=== PATIENT | male | born 1955 | race Caucasian/White ===

== ENCOUNTER 2017-11-09 15:23 | Emergency (ER) | payer BC, SELFPAY ==
[2017-11-09] VITALS (14 sets, daily range): BP systolic 131–149; BP diastolic 66–77; PULSE 70–82; RESP 16; TEMP 36.6; O2SAT 97–100
--- NOTE | 2017-11-09 15:30 | DI.RAD_ITS ---
SYMPTOMS/DIAGNOSIS: DEVIATION OF THE ANKLE AND FOOT TO THE RIGHT, ANKLE DEFORMITY, S/P INJURY PAIN IN DISTAL TIB-FIB, CONCERN FOR FX RIGHT ANKLE: There is a fracture extending obliquely through the distal fibula. There is displacement of the half shaft width laterally of the distal fractured portion. There is marked widening of the medial malleolus. An additional fracture is seen involving the posterior malleolus. Hardware is noted in the calcaneus from Achilles tendon repair. IMPRESSION: Fractures of the lateral and posterior malleoli with marked widening of the medial ankle mortise. RIGHT TIBIA-FIBULA: Fracture of the distal fibula and posterior tibia and marked medial ankle mortise widening are again noted. No additional fractures are seen proximally in the tibia and fibula. IMPRESSION: Lateral and posterior malleolar fractures and marked medial ankle mortise widening.
[2017-11-09] MEDS: Acetaminophen 500 MG TAB 1000 MG PO (15:39)
[2017-11-09] MEDS: Ibuprofen 800 MG TAB PO (15:40)
--- NOTE | 2017-11-09 15:45 | ED.GENADUL ---
Disposition Clinical Impression: Fracture of distal fibula, Fracture of posterior malleolus of right tibia Disposition: HOME Condition: Good Instructions: Ankle Fracture (ED) Additional Instructions: Please take Tylenol and Motrin for your pain. Due to the small chance of decreased tendon and bone healing I would recommend Tylenol over ibuprofen if you would gravitate towards one or the other. Please take an 81 mg daily aspirin. If you notice any changing of color on your foot, blueness, worsening pain, numbness or tingling, or coolness in your foot please remove the cast immediately and come to the nearest ER. Please follow-up as soon as possible with the card services specialist. Please call the office of Dr. Brody and Dr. Miller in [facility] at the phone number [phone]. Please ask for Rene Troncoso and tell him that you had a distal fibular and tibial malleolus fracture. Tell him that the ER doctor spoke with Dr. Brody and Dr. Brody wanted you seen as soon as possible. If you notice any worsening of your symptoms, or any new symptoms such as vomiting, diarrhea, fever, chills, shortness of breath, chest pain, numbness, weakness, or fainting , please return immediately to the emergency department for reevaluation. Please follow up with your primary care provider as soon as possible for reassessment and reevaluation. As always, it was a pleasure participating in your medical care today. Prescriptions: Acetaminophen [Tylenol Extra Strength] 1,000 mg PO Q6H 5 Days #60 tab Aspirin [Adult Aspirin] 81 mg PO DAILY #30 tablet. Ibuprofen [Motrin Ib] 600 mg PO Q6H 5 Days #60 tablet Medical Decision Making - Medical Decision Making This is a 61-year-old male no significant past medical history on no blood thinners who presents for ankle deformity. The patient was walking down the bank when he slipped and developed a violent deformity to his right ankle. He states that he was initially laterally and externally rotated, he was able to put it back in place, get back to his car. Physical exam demonstrates a foot that is midline with mild deformity at the ankle with no significant rotation at this point. Sensation is intact, vascular exam is normal with brisk capillary refill and +2 dorsalis pedis and +1 posterior tibial pulse. And concern for fracture. We will get an x-ray for further evaluation. At this point he is refusing any additional pain medication, but has agreed to Tylenol Motrin. 5:30 PM Patient's x-ray has returned and demonstrates evidence of fractures of the distal fibula in the posterior tibial malleolus with widening of the medial ankle joint space consistent with deltoid ligament rupture. These findings are noted on virtual radiology report. There is no evidence of proximal tibial or fibular fracture. I did contact Dr. Aggarwal and discussed the case with him. I reviewed the images and the findings, as well as the patient's current clinical position/disposition and he recommends outpatient follow-up for surgery with posterior splinting and nonweightbearing. The patient is from [place], and would prefer to follow-up there. I did contact the [facility], discussed the case with Dr. Brody, the foot and ankle specialist network operations specialist, he agrees with the current assessment and plan, and does recommend close follow-up at his clinic. It will be with himself or Dr. Miller. The phone number for the clinic that was given to me is [phone]. The patient was put in a posterior splint and he tolerated this well. Post splinting he continued to demonstrate a good neurovascular exam with brisk capillary refill and normal sensation. He has been given crutches. We discussed red flags for which to return the patient understands. I have also recommended a daily 81 mg aspirin and instructions for decreasing likelihood of a lower extremity clot. I have extensively reviewed the treatment plan and discharge instructions with the patient and their family. I have addressed all patient concerns at this time. The patient and family was made aware of what symptoms to monitor for that would warrant a return to the emergency department. Discussed the plan with the patient and family, they demonstrate verbal understanding and agreement with our assessment and plan at this time. History of Present Illness - General Chief complaint: Orthopedic Stated complaint: ANKLE INJURY Time Seen by Provider: 11/09/17 15:29 - History of Present Illness Initial comments: This is a 61-year-old male with past medical history of hearing difficulty and preglaucoma, who presents for right ankle pain. The patient states that he was walking and slipped in a ditch and he noticed that his right ankle was violently everted outwardly, and rotated to the right. He was able to reposition it on his own, hobbled back to his car, and came to the ER. The patient is a retired EMT. He complains of notable pain in the ankle, but no pain in the knee or tib-fib region. He denies any previous or recent surgeries. He denies any numbness, tingling. He does admit to weakness secondary to pain. He has no other complaints at this time. - Related Data Acetaminophen [Tylenol Extra Strength] 1,000 mg PO Q6H 5 Days #60 tab 11/09/17 Aspirin [Adult Aspirin] 81 mg PO DAILY #30 tablet.dr 11/09/17 Cholecalciferol (Vitamin D3) [Vitamin D] 1,000 unit PO DAILY 11/09/17 Fluticasone Propionate [Flonase] 2 spr NS DAILY PRN PRN 11/09/17 Ibuprofen [Motrin Ib] 600 mg PO Q6H 5 Days #60 tablet 11/09/17 Latanoprost [LATANOPROST 0.005%] 1 drp OP HS 11/09/17 [place]-3 Fatty Acids/Fish Oil [Fish Oil 1,000 mg Capsule] 1 each PO DAILY 11/09/17 Tamsulosin [Flomax] 0.4 mg PO HS 11/09/17 Allergies Allergy/AdvReac Type Severity Reaction Status Date / Time No Known Allergies Allergy Unverified 11/09/17 15:30 Review of Systems Other: 10 point review of systems was performed, pertinent positives and negatives are noted in the history of present illness. General Exam - Other Other exam information: 1.Const: Well-nourished, Well-developed, appearing stated age 2.Eyes: PERRL, no conjunctival injection, and symmetrical lids. 3.ENT: Atraumatic external nose and ears. Moist MM. Neck: Symmetric, trachea midline, No thyromegaly. 4.CVS: +S1/S2, No murmurs or gallops. Peripheral pulses 2+ and equal in all extremities. Brisk capillary refill in all extremities. 5.RESP: Unlabored respiratory effort. Clear to auscultation bilaterally. No wheezes rales or rhonchi 6.GI: Soft, Nontender/Nondistended, No hepatosplenomegaly. No guarding or rebound. 7.MSK: Normocephalic, No cyanosis or clubbing, noticeable deformity of the right ankle. Foot is currently midline however there does appear to be a slight shift laterally to the right for the entire ankle. Notable swelling. Pain is located over the medial and lateral malleoli. No pain or tenderness over the mid or proximal tib-fib. No pain in the knee, or signs of deformity or laxity in the knee. No pain over the lateral proximal fibula. No pain or tenderness over the midfoot, or toes. Good sensation throughout, including good two-point discrimination. Brisk capillary refill, intact +2 dorsalis pedis and +1 posterior tibial pulse. Normal sensation throughout. No other abnormalities. All other extremities normal. 8.Skin: Warm, Dry. No rashes or lesions. 9.Neuro: cardiology consultants II-XII grossly intact. Sensation grossly intact, no focal neurologic deficits. 10.Psych: (AAO) x3. Appropriate mood and affect Course Vital Signs - 24 hr 11/09/17 15:31 Temperature 36.6 C Pulse 73 Respiratory 16 Rate Blood Pressure 147/74 Pulse Oximetry 99
--- NOTE | 2017-11-09 15:50 | ED.GENADUL_ITS ---
Disposition Clinical Impression: Fracture of distal fibula, Fracture of posterior malleolus of right tibia Disposition: HOME Condition: Good Instructions: Ankle Fracture (ED) Additional Instructions: Please take Tylenol and Motrin for your pain. Due to the small chance of decreased tendon and bone healing I would recommend Tylenol over ibuprofen if you would gravitate towards one or the other. Please take an 81 mg daily aspirin. If you notice any changing of color on your foot, blueness, worsening pain, numbness or tingling, or coolness in your foot please remove the cast immediately and come to the nearest ER. Please follow-up as soon as possible with the bankruptcy law specialist. Please call the office of Dr. Brody and Dr. Miller in [facility] at the phone number [phone]. Please ask for Rene Troncoso and tell him that you had a distal fibular and tibial malleolus fracture. Tell him that the ER doctor spoke with Dr. Brody and Dr. Brody wanted you seen as soon as possible. If you notice any worsening of your symptoms, or any new symptoms such as vomiting, diarrhea, fever, chills, shortness of breath, chest pain, numbness, weakness, or fainting , please return immediately to the emergency department for reevaluation. Please follow up with your primary care provider as soon as possible for reassessment and reevaluation. As always, it was a pleasure participating in your medical care today. Prescriptions: Acetaminophen [Tylenol Extra Strength] 1,000 mg PO Q6H 5 Days #60 tab Aspirin [Adult Aspirin] 81 mg PO DAILY #30 tablet. Ibuprofen [Motrin Ib] 600 mg PO Q6H 5 Days #60 tablet Medical Decision Making - Medical Decision Making This is a 61-year-old male no significant past medical history on no blood thinners who presents for ankle deformity. The patient was walking down the bank when he slipped and developed a violent deformity to his right ankle. He states that he was initially laterally and externally rotated, he was able to put it back in place, get back to his car. Physical exam demonstrates a foot that is midline with mild deformity at the ankle with no significant rotation at this point. Sensation is intact, vascular exam is normal with brisk capillary refill and +2 dorsalis pedis and +1 posterior tibial pulse. And concern for fracture. We will get an x-ray for further evaluation. At this point he is refusing any additional pain medication, but has agreed to Tylenol Motrin. 5:30 PM Patient's x-ray has returned and demonstrates evidence of fractures of the distal fibula in the posterior tibial malleolus with widening of the medial ankle joint space consistent with deltoid ligament rupture. These findings are noted on virtual radiology report. There is no evidence of proximal tibial or fibular fracture. I did contact Dr. Aggarwal and discussed the case with him. I reviewed the images and the findings, as well as the patient's current clinical position/disposition and he recommends outpatient follow-up for surgery with posterior splinting and nonweightbearing. The patient is from [place], and would prefer to follow-up there. I did contact the [facility], discussed the case with Dr. Brody, the foot and ankle specialist senior compensation analyst, he agrees with the current assessment and plan, and does recommend close follow-up at his clinic. It will be with himself or Dr. Miller. The phone number for the clinic that was given to me is [phone]. The patient was put in a posterior splint and he tolerated this well. Post splinting he continued to demonstrate a good neurovascular exam with brisk capillary refill and normal sensation. He has been given crutches. We discussed red flags for which to return the patient understands. I have also recommended a daily 81 mg aspirin and instructions for decreasing likelihood of a lower extremity clot. I have extensively reviewed the treatment plan and discharge instructions with the patient and their family. I have addressed all patient concerns at this time. The patient and family was made aware of what symptoms to monitor for that would warrant a return to the emergency department. Discussed the plan with the patient and family, they demonstrate verbal understanding and agreement with our assessment and plan at this time. History of Present Illness - General Chief complaint: Orthopedic Stated complaint: ANKLE INJURY Time Seen by Provider: 11/09/17 15:29 - History of Present Illness Initial comments: This is a 61-year-old male with past medical history of hearing difficulty and preglaucoma, who presents for right ankle pain. The patient states that he was walking and slipped in a ditch and he noticed that his right ankle was violently everted outwardly, and rotated to the right. He was able to reposition it on his own, hobbled back to his car, and came to the ER. The patient is a retired EMT. He complains of notable pain in the ankle, but no pain in the knee or tib-fib region. He denies any previous or recent surgeries. He denies any numbness, tingling. He does admit to weakness secondary to pain. He has no other complaints at this time. - Related Data Acetaminophen [Tylenol Extra Strength] 1,000 mg PO Q6H 5 Days #60 tab 11/09/17 Aspirin [Adult Aspirin] 81 mg PO DAILY #30 tablet.dr 11/09/17 Cholecalciferol (Vitamin D3) [Vitamin D] 1,000 unit PO DAILY 11/09/17 Fluticasone Propionate [Flonase] 2 spr NS DAILY PRN PRN 11/09/17 Ibuprofen [Motrin Ib] 600 mg PO Q6H 5 Days #60 tablet 11/09/17 Latanoprost [LATANOPROST 0.005%] 1 drp OP HS 11/09/17 [place]-3 Fatty Acids/Fish Oil [Fish Oil 1,000 mg Capsule] 1 each PO DAILY Tamsulosin [Flomax] 0.4 mg PO HS 11/09/17 Allergies Allergy/AdvReac Type Severity Reaction Status Date / Time No Known Allergies Allergy Unverified 11/09/17 15:30 Review of Systems Other: 10 point review of systems was performed, pertinent positives and negatives are noted in the history of present illness. General Exam - Other Other exam information: 1.Const: Well-nourished, Well-developed, appearing stated age 2.Eyes: PERRL, no conjunctival injection, and symmetrical lids. 3.ENT: Atraumatic external nose and ears. Moist MM. Neck: Symmetric, trachea midline, No thyromegaly. 4.CVS: +S1/S2, No murmurs or gallops. Peripheral pulses 2+ and equal in all extremities. Brisk capillary refill in all extremities. 5.RESP: Unlabored respiratory effort. Clear to auscultation bilaterally. No wheezes rales or rhonchi 6.GI: Soft, Nontender/Nondistended, No hepatosplenomegaly. No guarding or rebound. 7.MSK: Normocephalic, No cyanosis or clubbing, noticeable deformity of the right ankle. Foot is currently midline however there does appear to be a slight shift laterally to the right for the entire ankle. Notable swelling. Pain is located over the medial and lateral malleoli. No pain or tenderness over the mid or proximal tib-fib. No pain in the knee, or signs of deformity or laxity in the knee. No pain over the lateral proximal fibula. No pain or tenderness over the midfoot, or toes. Good sensation throughout, including good two-point discrimination. Brisk capillary refill, intact +2 dorsalis pedis and +1 posterior tibial pulse. Normal sensation throughout. No other abnormalities. All other extremities normal. 8.Skin: Warm, Dry. No rashes or lesions. 9.Neuro: dinkey dispatcher II-XII grossly intact. Sensation grossly intact, no focal neurologic deficits. 10.Psych: (AAO) x3. Appropriate mood and affect Course Vital Signs - 24 hr 11/09/17 15:31 Temperature 36.6 C Pulse 73 Respiratory 16 Rate Blood Pressure 147/74 Pulse Oximetry 99
--- NOTE | 2017-11-09 16:18 | DI.VRAD_ITS ---
EXAM: XR Right Ankle Complete, 3 or More Views CLINICAL HISTORY: 61 years old, male; Injury or trauma; Fall; Initial encounter; Blunt trauma; Ankle; Right TECHNIQUE: Frontal, lateral and oblique views of the right ankle. COMPARISON: No relevant prior studies available. FINDINGS: Bones/joints: Oblique fracture of the distal fibula metaphysis with 8 mm of displacement. Widening of the medial ankle joint space consistent with deltoid ligament rupture. Nondisplaced fracture the posterior tibial malleolus. No dislocation. Soft tissues: Changes of prior Achilles tendon repair with 2 metal anchors within the superior calcaneal tubercle. IMPRESSION: Fractures of the distal fibula and posterior tibial malleolus with widening of the medial ankle joint space consistent with deltoid ligament rupture. Dictated and Authenticated by: Ismael Aburto MD. Ordering:JUNIOR BA MD
--- NOTE | 2017-11-09 16:19 | DI.VRAD_ITS ---
EXAM: XR Right Tibia and Fibula, 2 Views CLINICAL HISTORY: 61 years old, male; Pain; Ankle; Right TECHNIQUE: Frontal and lateral views of the right tibia and fibula. COMPARISON: No relevant prior studies available. FINDINGS: Bones/joints: Oblique fracture of the distal fibula metaphysis with posterior lateral displacement. Nondisplaced fracture the posterior tibia malleolus. Widening of the medial ankle joint space consistent with deltoid ligament rupture. No dislocation. Soft tissues: Changes of prior Achilles tendon repair with 2 metal anchors within the superior calcaneal tuberosity. IMPRESSION: Fractures of the distal fibula and posterior tibial malleolus with widening of the medial ankle joint space consistent with deltoid ligament rupture. Dictated and Authenticated by: Ismael Aburto MD. Ordering:JUNIOR BA MD
== END 2017-11-09 17:52 | disposition home or self-care (01) ==
LOC: ER 11-10 10:14
PROVIDERS: Emergency Provider Student in an Organized Health Care Education/Training Program
DX: S82.891A Other fracture of right lower leg, initial encounter for closed fracture (principal); S82.431A Displaced oblique fracture of shaft of right fibula, initial encounter for closed fracture; S93.421A Sprain of deltoid ligament of right ankle, initial encounter; W17.81XA Fall down embankment (hill), initial encounter; X50.9XXA Other and unspecified overexertion or strenuous movements or postures, initial encounter
CPT/HCPCS: 29505; 99284; 73590; 73610; 99285; E0114